=== PATIENT | male | born 2005 | race Caucasian/White ===

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

== ENCOUNTER 2023-02-08 22:08 | Emergency (ER) | payer OTHER, SELFPAY ==
[2023-02-08 22:10] VITALS: BP 144/85; PULSE 86; RESP 20; TEMP 37; O2SAT 98
--- NOTE | 2023-02-08 22:18 | ECG_ITS ---
Measurements Intervals [place] Rate: 76 P: 71 [place]: 193 QRS: 52 QRSD: 112 T: 66 QT: 342 QTc: 387 Interpretive Statements SINUS RHYTHM INCOMPLETE RIGHT BUNDLE BRANCH BLOCK BASELINE ARTIFACT- I, III, AVR, AVL, V1 BORDERLINE ECG COMPARED TO ECG 10/12/2021 15:51:31 NO SIGNIFICANT CHANGES Electronically Signed On 02-10-2023 6:50:34 CDT by Evan Chavez D.O.
--- NOTE | 2023-02-08 22:19 | ED.GENADULT ---
HPI - General Adult General Stated complaint: light headed History of Present Illness HPI narrative: Healthy 17yo man presents with palpitations, intermittent, for the past 2 weeks, along with sweatiness and elevated blood pressure, and recently a sensation of warmth and burning in his genitals and anus that comes on at the same time. Wore a heart monitor recently and won't get the results until Friday. Recently started on Sertraline this past week. Burning sensation did not start until the Sertraline. ROS notable for a lac to his toe, where the stitch broke today after only 2 days. Pt informed it will have to heal by second intent. Related Data Home Medications Medication Instructions Recorded Confirmed No Home Medications 10/12/21 10/12/21 Allergies Allergy/AdvReac Type Severity Reaction Status Date / Time No Known Allergies Allergy Verified 10/12/21 15:26 Review of Systems Review of Systems: All systems reviewed & are unremarkable except as noted in HPI and below Constitutional: Constitutional: Denies fever(s) ENT: Denies vertigo Cardiovascular: Cardiovascular: Denies chest pain and Reports rapid heart rate Respiratory: Respiratory: Denies dyspnea PMFSH Past Medical History Medical History Polycystic kidney disease Exam Const: General: healthy appearing, no acute distress and alert Nutritional Appearance: well nourished Orientation/consciousness: patient oriented x3 Eyes: Conjunctivae: conjunctivae normal Neck: Other: supple Resp: Effort & Inspection: normal respiratory effort, not labored and no retractions Cardio: Rate: regular rate Rhythm: regular rhythm GI: Inspection: non-distended Skin: General skin exam: normal color, no jaundice and no pallor Other: there is a laceration to his toe that must heal by second intent Neuro: General: patient oriented x3 and moves all extremities Gait exam (Neuro): Normal gait present Extrem: General: normal to inspection and no pedal edema Course Course Emergency Course: palpitations, sweatiness, episodic DDx likely medication adverse effect, Sertraline. Far less likely is a pheochromocytoma. Advise pt to stop Sertraline to see if symptoms improve. If symptoms continue, see PMD about ordering urinary metanephrines and/or an MRI to eval for neuroendocrine tumor. Vital Signs Vital signs: Vital Signs Temperature 37.0 C 02/08/23 22:10 Pulse Rate 86 02/08/23 22:10 Respiratory Rate 20 02/08/23 22:10 Blood Pressure 144/85 H 02/08/23 22:10 Pulse Oximetry 98 02/08/23 22:10 Oxygen Delivery Room Air 02/08/23 22:10 Temperature 37.0 C 02/08/23 22:10 Pulse Rate 86 02/08/23 22:10 Respiratory Rate 20 02/08/23 22:10 Blood Pressure 144/85 H 02/08/23 22:10 Pulse Oximetry 98 02/08/23 22:10 Oxygen Delivery Room Air 02/08/23 22:10 Medical Decision Making MDM Narrative Medical decision making narrative: see above Vital Signs Vital Signs: Vital Signs Temperature 37.0 C 02/08/23 22:10 Pulse Rate 86 02/08/23 22:10 Respiratory Rate 20 02/08/23 22:10 Blood Pressure 144/85 H 02/08/23 22:10 Pulse Oximetry 98 02/08/23 22:10 Oxygen Delivery Room Air 02/08/23 22:10 Temperature 37.0 C 02/08/23 22:10 Pulse Rate 86 02/08/23 22:10 Respiratory Rate 20 02/08/23 22:10 Blood Pressure 144/85 H 02/08/23 22:10 Pulse Oximetry 98 02/08/23 22:10 Oxygen Delivery Room Air 02/08/23 22:10 Discharge Plan Discharge Clinical Impression: Intermittent palpitations Patient Disposition: Home, Self-Care Condition: Stable Additional Instructions: Your EKG today is normal, showing no sign of any heart condition. The most likely cause of your palpitations and sweating is a medication side effect. You should stop Sertraline and should also try avoiding any caffeine or alcohol to see if your symptoms then i
[2023-02-08] MEDS: diazePAM (*CRX) 5 MG TABLET PO (23:30)
[2023-02-08 23:55] VITALS: BP 126/76; PULSE 86; RESP 16; TEMP 36.8; O2SAT 96
== END 2023-02-08 23:55 | disposition home or self-care (01) ==
PROVIDERS: Emergency Provider Emergency Medicine; PCP Family Medicine
DX: R00.2 Palpitations (principal)
CPT/HCPCS: 93005; 99284; A9270

== ENCOUNTER 2023-03-09 19:13 | Emergency (ER) | payer OTHER, SELFPAY ==
[2023-03-09 19:17] VITALS: BP 137/101; PULSE 116; RESP 18; TEMP 37.1; O2SAT 100
--- NOTE | 2023-03-09 19:52 | ED.GENADULT ---
HPI - General Adult General Chief complaint: Unspecified Stated complaint: Abdominal Pain Source: patient Mode of arrival: ambulatory Limitations: no limitations History of Present Illness HPI narrative: 18-year-old white male had history of hernia surgery bilaterally with mesh. Then8 days ago he had felt a pop in his right groin when he stretched had some pain and burning since. He saw his primary care who sent him a pinpoint with Dr. Carey it is for surgery he is from [place] becomes a little chilled every other Friday. He has appointment in 3 days says the pain is worse today rates it a 6/10. Has not taken anything for pain. Denies any problems voiding. Complains of his right testicle is painful and into his right guarding groin and feels a knot on the right side. Otherwise he denies any cough shortness of breath fever sore throat runny nose bleeding or bruising swelling. No other lumps and bumps besides the 1 in his right groin. No rash or itching or problems walking talking seeing or hearing. He has felt a little nauseous. But no vomiting. Past surgical history bilateral inguinal hernia surgeries Related Data Home Medications Medication Instructions Recorded Confirmed buspirone 5 mg tablet 5 mg PO DAILY 02/09/23 03/09/23 Allergies Allergy/AdvReac Type Severity Reaction Status Date / Time No Known Allergies Allergy Verified 02/09/23 03:10 [facility] Past Medical History Medical History Polycystic kidney disease Exam Narrative: White male no apparent distress.? Head normocephalic, atraumatic.? Eyes conjunctiva pink sclera nonicteric.? Extraocular movements are intact.? ? ? Neck is supple nontender no lymphadenopathy.? Back is nontender.? Lungs are clear.? Heart is regular with tachycardia and regular rhythm without murmurs gallops or rubs.? Chest wall is nontender.? Abdomen is soft and nontender no hepatosplenomegaly or masses no CVA tenderness no abdominal bruits.? right testicle mild tenderness the epididymis is mildly tender he has a tender lump in his right groin about the size of a pea. I do not feel a definite hernia on the right. Left testicle is normal there is no hernia on the left.Extremities no cyanosis clubbing or edema.? Skin is warm and dry without rashes or lesions.? Neurological patient is alert and oriented x4.? Motor and sensory grossly intact.? Gait is normal. Course Vital Signs Vital signs: Vital Signs Temperature 37.1 C 03/09/23 19:17 Pulse Rate 116 H 03/09/23 19:17 Respiratory Rate 18 03/09/23 19:17 Blood Pressure 137/101 H 03/09/23 19:17 Pulse Oximetry 100 03/09/23 19:17 Oxygen Delivery Room Air 03/09/23 19:17 Temperature 37.1 C 03/09/23 19:17 Pulse Rate 116 H 03/09/23 19:17 Respiratory Rate 18 03/09/23 19:17 Blood Pressure 137/101 H 03/09/23 19:17 Pulse Oximetry 100 03/09/23 19:17 Oxygen Delivery Room Air 03/09/23 19:17 Medical Decision Making MDM Narrative Medical decision making narrative: Patient is placed in room 4 history of physical or performed. Independent Historian: ? Patient only Differential Dx includes but not limited to:? torsion of the testes inguinal hernia Medications were Reviewed:? ?? Independently Interpreted by me:? ?? External Source Review:? ? Social Situation Impacting Patients Care:? ? Shared decision Making:?? was discussed with the patient that he possibly could have a torsion of the testicle and that we are unable to do any kind of ultrasound here and he agreed be transferred to [facility] for ultrasound evaluation there. Discussed with Dr.? Tapia at 8:15 p.m. accepted patient in transfer to his ED department there via private vehicle Vital Signs Vital Signs: Vital Signs Temperature 37.1 C 03/09/23 19:17 Pulse Rate 116 H 03/09/23 19:17 Respiratory Rate 18 03/09/23 19:17 Blood Pressure 137/101 H 05
[2023-03-09 20:02] VITALS: BP 138/79; PULSE 85; RESP 18; O2SAT 99
--- NOTE | 2023-03-09 20:18 | PC.NURSE ---
Call to [facility] for pt to have U/S to r/o torsion or possible mesh issue from inguinal hernia surgery. Dr Burgos spoke to Dr Tapia and pt signed paperwork to go by car and drive himself to their ER. Paperwork signed for transfer and sent c pt.
[2023-03-09 20:27] VITALS: BP 136/75; PULSE 80; RESP 18; TEMP 36.6; O2SAT 99
== END 2023-03-09 20:36 | disposition short-term general hospital (02) ==
PROVIDERS: Emergency Provider Emergency Medicine; PCP Family Medicine
DX: R10.31 Right lower quadrant pain (principal); N50.811 Right testicular pain; R22.2 Localized swelling, mass and lump, trunk
CPT/HCPCS: 99282

== ENCOUNTER 2023-03-09 21:05 | Emergency (ER) | payer OTHER, SELFPAY ==
--- NOTE | ~2023-03-09 | US_ITS ---
EXAMINATION: US scrotum doppler DATE: 03/09/2023 22:33 INDICATION: Right testicular pain. TECHNIQUE: Grayscale and Doppler ultrasound images of the testes were obtained. COMPARISON: None. FINDINGS: The right testis measures 3.9 x 2.0 x 2.6 cm. The left testis measures 3.6 x 1.8 x 2.6 cm. There is normal vascular flow to both testes. The right epididymis is normal with normal vascular nu w. The left epididymis is normal with normal vascular flow. There is no varicocele or hydrocele. IMPRESSION: 1. Normal testes. Reviewed, dictated and finalized at location A. IMPRESSION: 1. Normal testes.
--- NOTE | ~2023-03-09 | CT_ITS ---
EXAMINATION: CT abdomen pelvis w con DATE: 03/10/2023 01:13 INDICATION: Right groin pain. TECHNIQUE: Computed tomography (CT) of the abdomen and pelvis was performed with 100 mL Omnipaque 350 intravenous contrast. Automated exposure control and iterative reconstruction technique were employe d. The dose-length product was 317.57 mGy-cm. COMPARISON: CT abdomen and pelvis 10/12/2021 FINDINGS: The visualized portions of the lung bases are clear without pneumonia or pleural effusion. The heart size is normal. No pericardial effusion. The liver, gallbladder, spleen, pancreas, and adre nal glands are normal. There are cysts in the kidneys measuring up to 3.2 cm on the left. There is a 2 mm in right kidney. There are no dilated loops of bowel. The appendix is normal. There are no patho logically enlarged lymph nodes. There is trace ascites in the pelvis. There is mild lumbar spondylosi s. IMPRESSION: 1. Polycystic kidney disease. 2. Trace ascites. Reviewed, dictated and finalized at location A.
[2023-03-09 21:07] VITALS: BP 135/91; PULSE 79; RESP 18; TEMP 36.8
--- NOTE | 2023-03-09 21:29 | ED.GENADULT ---
HPI - General Adult General Chief complaint: Urogenital-Male Stated complaint: constricted testicles Time Seen by Provider: 03/09/23 21:07 History of Present Illness HPI narrative: 18-year-old male presented ED for evaluation of right testicular pain. Patient states a few months ago he had a hernia repair. He reports approximately 8 days ago he felt a pop and bulge in the right side. Patient was having some testicular pain with this. Patient was initially seen at [facility] and was advised to present to our ED for emergent ultrasound to rule out torsion. Patient also describes some generalized lower abdominal discomfort. Patient denies any associated nausea vomiting or diarrhea. Related Data Home Medications Medication Instructions Recorded Confirmed buspirone 5 mg tablet 5 mg PO DAILY 02/09/23 03/09/23 Allergies Allergy/AdvReac Type Severity Reaction Status Date / Time No Known Allergies Allergy Verified 03/09/23 22:01 Review of Systems Review of Systems: All systems reviewed & are unremarkable except as noted in HPI and below PMFSH Past Medical History Medical History Polycystic kidney disease Exam Narrative: APPEARANCE: Well appearing, no pain, no distress, well-nourished. HEAD: normocephalic, atraumatic. EYES: PERRLA/EOMI, conjunctivae clear. NOSE: Normal no drainage NECK: Supple. No adenopathy, no masses. RESPIRATORY: Airway patent, respirations nonlabored. Clear to auscultation bilaterally, no rales, rhonchi, wheezing. CARDIOVASCULAR: Regular rate and rhythm without murmurs rubs or gallops. ABDOMINAL: Soft, nontender, nondistended, normal bowel sounds. Right inguinal tenderness to palpation. No scrotal tenderness to palpation. MUSCULOSKELETAL: Moves all extremities. Strength/ROM intact, No edema, No calf tenderness. NEURO: Alert. Cranial nerves II through XII intact. Grossly intact SKIN: Warm, dry. Normal Color Course Course Emergency Course: 18-year-old male presented to ED for evaluation of generalized lower abdominal discomfort and right inguinal pain. Ultrasound was ordered to rule out torsion and ultrasound was negative. Due to the patient also having some right groin pain CT scan was ordered to evaluate for incarcerated hernia. CT scan did show evidence of enterocolitis but no hernia. Patient was afebrile with no leukocytosis. Patient's CMP had no significant abnormalities. UA showed no evidence of infection. Patient reports he does have follow-up scheduled with the surgeon on Friday. Patient and family are updated on the results of the work-up and on reasons to return to the emergency room. All question concerns were addressed Vital Signs Vital signs: Vital Signs Temperature 98.2 F 03/09/23 21:07 Pulse Rate 79 03/09/23 21:07 Respiratory Rate 18 03/09/23 21:07 Blood Pressure 135/91 H 03/09/23 21:07 Oxygen Delivery Room Air 03/09/23 21:07 Temperature 98.2 F 03/09/23 21:07 Pulse Rate 68 03/10/23 02:32 Respiratory Rate 19 03/10/23 02:32 Blood Pressure 120/72 03/10/23 02:32 Pulse Oximetry 100 03/10/23 02:32 Oxygen Delivery Room Air 03/09/23 21:07 Medical Decision Making Differential Diagnosis Differential Diagnosis: Testicular torsion, incarcerated hernia, colitis, enteritis or colitis Vital Signs Vital Signs: Vital Signs Temperature 98.2 F 03/09/23 21:07 Pulse Rate 79 03/09/23 21:07 Respiratory Rate 18 03/09/23 21:07 Blood Pressure 135/91 H 03/09/23 21:07 Oxygen Delivery Room Air 03/09/23 21:07 Temperature 98.2 F 03/09/23 21:07 Pulse Rate 68 03/10/23 02:32 Respiratory Rate 19 03/10/23 02:32 Blood Pressure 120/72 03/10/23 02:32 Pulse Oximetry 100 03/10/23 02:32 Oxygen Delivery Room Air 03/09/23 21:07 Lab Data Lab results reviewed: Yes I reviewed the patient's lab results. 03/09/23 21:16 03/09/23 21:16
[2023-03-09 21:40] LABS: Basophils Percent Auto 0.4 % (0.2-1.2); Eosinophils Absolute Auto 0.1 K/mm3 (0-0.3); Eosinophils Percent Auto 1.8 % (0-4.4); Hematocrit 47.7 % (42.0-52.0); Hemoglobin 16.4 g/dL (14.0-18.0); Immature Granulocyte Absolute 0.02 K/mm3 (0.00-0.031); Immature Granulocyte Percent A 0.3 % (0-0.5); Lymphocytes Absolute Auto 2.97 K/mm3 (0.9-3.2); Lymphocytes Percent Auto 40.1 % (18.3-44.2); Mean Corpuscular HGB Conc 34.4 g/dl (32-36); Mean Corpuscular Hemoglobin 29.9 pg (26-34); Mean Platelet Volume 9.9 fl (7.4-10.4); Monocytes Absolute Auto 0.5 K/mm3 (0.1-0.6); Neutrophils Absolute Auto 3.7 K/mm3 (1.3-6.7); Neutrophils Percent Auto 50.4 % (45.5-73.1); Platelet Count Result 240 k/mm3 (150-375); Red Blood Count 5.48 M/mm3 (4.6-6.20); Red Cell Distribution Width 11.9 % (11.5-14.5); White Blood Count 7.4 K/mm3 (4.5-10.0)
[2023-03-09 21:48] LABS: Appearance Urine Clear (Clear); Bilirubin Urine Negative (Negative); Blood Urine Negative (Negative); Color Urine Yellow (Yellow); Glucose Urine UA Negative (Negative); Ketones Urine Negative (Negative); Leukocyte Esterase Ur Negative LEU/UL (Negative); Nitrate Urine Negative (Negative); Protein Urine Negative (Negative); Specific Grav Ur 1.019 (1.001-1.035); pH Urine 6.5 (5.0-9.0)
[2023-03-09 21:49] LABS: Alanine Aminotransferase 16 U/L (6-50); Alkaline Phosphatase 102 U/L (38-126); Anion Gap 9 mmol/L (8-16); Aspartate Amino Transferase 21 U/L (17-59); Bilirubin,Total 0.6 mg/dL (0.2-1.3); Blood Urea Nitrogen 22 mg/dL (9-20); Calcium 9.4 mg/dL (8.4-10.2); Carbon Dioxide 31 mmol/L (22-30); Chloride 98 mmol/L (98-107); Estimated Glomerular Filt Rate > 60; Glucose 87 mg/dL (65-110); Potassium 3.9 mmol/L (3.4-5.0); Sodium 138 mmol/L (137-145)
[2023-03-09 21:58] LABS: Add Urine Microscopic? NO
[2023-03-09 22:43] VITALS: BP 121/89; PULSE 67; RESP 16; O2SAT 99
--- NOTE | 2023-03-09 23:29 | PC.NURSE ---
This RN assumed care of patient.
[2023-03-10] MEDS: SODIUM CHLORIDE 0.9% IV 1,000 ML 999 ML IV CONT (00:04)
[2023-03-10] MEDS: HYDROmorphone HCL INJ (*CRX) 1 MG/ML SYR 0.5 MG IV PUSH (00:05)
[2023-03-10 02:32] VITALS: BP 120/72; PULSE 68; RESP 19; O2SAT 100
== END 2023-03-10 02:32 | disposition home or self-care (01) ==
PROVIDERS: Emergency Provider Emergency Medicine; PCP Family Medicine
DX: R10.31 Right lower quadrant pain (principal); Q61.3 Polycystic kidney, unspecified
CPT/HCPCS: 36415; 74177; 76870; 80053; 81003; 85025; 93976; 96361; 96374; 99284; J1170; J7030; Q9967

== ENCOUNTER 2023-06-04 18:21 | Emergency (ER) | payer OTHER, SELFPAY ==
[2023-06-04 18:30] VITALS: BP 133/93; PULSE 72; RESP 20; TEMP 36.7; O2SAT 100
--- NOTE | 2023-06-04 19:01 | ED.SYNCOPE ---
HPI - Syncope General Chief Complaint: Syncope Stated Complaint: syncope Time Seen by Provider: 06/04/23 19:00 Source: patient Mode of arrival: ambulatory Limitations: no limitations History of Present Illness HPI narrative: 18-year-old male, nia peña with no past medical was on a scaffolding and laying bricks. At 1:30 p.m. he felt dizzy and lightheaded following which he got off the scaffolding. On his way back to his truck patient felt syncopal. He sat in his truck seat subsequently he is unsure whether he lost consciousness. the patient initially had profuse sweating. Subsequently quit sweating. no nausea/ vomiting. No abdominal pain. No chest pain or shortness of breath. He went to [facility] where he waited for 3 hours without being seen. He left [facility] and presented to the ER here. The patient complains of -- mild dizziness. -- Headache MD complaint: loss of consciousness ( Questionable loss of consciousness) Onset (ago): hour(s) ( 5 hours ago.) Duration of episode: 180 -: minutes(s) Prodromal symptoms: headache and lightheaded Witnessed: Yes - by Bystander Injuries sustained associated with event: none Current symptoms: weakness and other ( dizziness) Treatments prior to arrival: none Related Data Home Medications Medication Instructions Recorded Confirmed No Home Medications 06/04/23 06/04/23 Allergies Allergy/AdvReac Type Severity Reaction Status Date / Time No Known Allergies Allergy Verified 06/04/23 18:36 Review of Systems Review of Systems: All systems reviewed & are unremarkable except as noted in HPI and below Constitutional: Constitutional: Reports as per HPI, Reports no additional constitutional complaints and Reports weakness Eyes: Eyes: Reports as per HPI and Reports no additional eye complaints ENT: Reports system reviewed and no additional complaints, except as documented and Reports as per HPI Cardiovascular: Cardiovascular: Reports as per HPI and Reports no additional cardiovascular complaints Respiratory: Respiratory: Reports as per HPI and Reports no additional respiratory complaints Gastrointestinal: Gastrointestinal: Reports as per HPI and Reports no additional gastrointestinal complaints Genitourinary: Genitourinary: Reports no additional male genitourinary complaints Musculoskeletal: Musculoskeletal: Reports no additional musculoskeletal complaints Integumentary/Breasts: Skin/Breast: Reports system reviewed and no additional complaints, except as docu and Reports as per HPI Neurologic: Reports system reviewed and no additional complaints, except as documented, Reports as per HPI and Reports dizziness Endocrine: Endocrine: Reports no additional endocrine complaints and Reports as per HPI Hematologic/Lymphatic: Hematologic/Lymphatic: Reports no additional hematologic/lymphatic complaints and Reports as per HPI Allergic/Immunologic: Allergic/Immunologic: Reports no additional allergic/immunologic complaints and Reports as per HPI [facility] Past Medical History Medical History Polycystic kidney disease Exam Narrative: not orthostatic Const: General: no acute distress HENMT: Head: normal to inspection Ears: external ears normal Face/Nose/Sinus: Normal external nose present Face and sinus: normal facial exam Mouth: Yes Normal oral and palatal mucosa present Throat: posterior oropharynx normal Eyes: Conjunctivae: conjunctivae normal Pupils: Equal, round and reactive pupils present EOM: EOMs intact bilaterally Direct Ophthalmoscopy: no photophobia Neck: Neck: normal visual inspection, no lymphadenopathy and no meningeal signs Chest: Chest palpation & inspection: normal inspection of the chest Resp: Effort & Inspection: normal respiratory effort Auscultation: clear to auscultation bilaterally Cardio: Rate: regular rate Rhythm: regular rhythm Heart sounds: Murmur heart jeffy
[2023-06-04 19:44] LABS: Basophils Absolute Auto 0.03 K/mm3 (0.00-0.10); Basophils Percent Auto 0.4 % (0.0-1.0); Eosinophils Absolute Auto 0.06 K/mm3 (0.02-0.50); Eosinophils Percent Auto 0.8 % (1.0-6.0); Hematocrit 40.8 % (40.0-54.0); Immature Granulocyte Absolute 0.01 K/mm3 (0.00-0.00); Immature Granulocyte Percent A 0.1 % (0.0-0.0); Lymphocytes Absolute Auto 2.96 K/mm3 (1.10-4.50); Lymphocytes Percent Auto 41.7 % (18.0-42.0); Mean Corpuscular HGB Conc 34.3 g/dL (32.0-36.0); Mean Corpuscular Hemoglobin 30.2 pg (27.0-31.0); Mean Corpuscular Volume 88.1 fL (78.0-102.0); Mean Platelet Volume 9.8 fl (8.7-11.0); Monocytes Absolute Auto 0.44 K/mm3 (0.10-0.90); Monocytes Percent Auto 6.2 % (2.0-11.0); Neutrophils Absolute Auto 3.6 K/mm3 (1.7-7.2); Neutrophils Percent Auto 50.8 % (50.0-70.0); Platelet Count Result 211 K/mm3 (150-420); Red Blood Count 4.63 M/mm3 (4.70-6.10); Red Cell Distribution Width 11.8 % (11.6-14.4); White Blood Count 7.1 K/mm3 (4.8-10.8)
[2023-06-04 20:04] LABS: Alanine Aminotransferase 12 U/L (16-63); Albumin Level 4.2 g/dL (3.4-5.0); Alkaline Phosphatase 89 U/L (46-116); Anion Gap 7 mmol/L (8-16); Aspartate Amino Transferase 11 U/L (15-37); Blood Urea Nitrogen 16 mg/dL (7-18); Carbon Dioxide 32 mmol/L (21-32); Chloride 102 mmol/L (98-108); Creatine Kinase 114 U/L (39-308); Estimated CRCL calculation 114 ml/min; Estimated Glomerular Filt Rate > 60; Glucose 93 mg/dL (70-99); Osmolality Calculated 293 mOsm/kg (285-295); Sodium 141 mmol/L (136-145); Total Protein 7.4 g/dL (6.4-8.2)
[2023-06-04 20:06] LABS: Troponin I < 4.0 ng/L (0.00-60.4)
--- NOTE | 2023-06-04 20:19 | PC.NURSE ---
2014-conventional underwriter followed up on fax as it has not been received at this time. conventional underwriter spoke with pari amaya and was advised to contact medical records as er does not fax information. contact pager as provided ( [phone]). page sent out conventional underwriter awaiting call back. pari Amaya advised call back time is approx 1 hour. physician made aware 1899-report from quentin arriaza. pt has signed medical record release form. rn currently waiting for labs to be faxed from [facility].
[2023-06-04 20:30] VITALS: BP 131/81; PULSE 78; RESP 18; O2SAT 95
== END 2023-06-04 20:40 | disposition home or self-care (01) ==
PROVIDERS: Emergency Provider Internal Medicine Critical Care Medicine; PCP Family Medicine
DX: R55 Syncope and collapse (principal); T67.5XXA Heat exhaustion, unspecified, initial encounter
CPT/HCPCS: 36415; 80053; 82550; 84484; 85025; 99284

== ENCOUNTER 2023-07-30 09:48 | Outpatient (CLI) | payer OTHER, SELFPAY ==
--- NOTE | ~2023-07-30 | XR_ITS ---
Thoracic spine: Clinical Indication: Back pain AP and lateral views were performed. No fracture is seen. There is normal alignment of the vertebrae. The intervertebral disc spaces appe ar normal. Paravertebral soft tissues appear normal. Impression: No significant abnormalities noted. Reviewed, dictated and finalized at [facility]. Impression: No significant abnormalities noted.
== END 2023-07-30 09:49 | disposition home or self-care (01) ==
LOC: CHSIMG 09:53
PROVIDERS: PCP Family Medicine; Visit Provider Family Medicine
DX: M54.6 Pain in thoracic spine (principal)
CPT/HCPCS: 72072

== ENCOUNTER 2023-08-04 07:32 | Outpatient (RCR) | payer OTHER, SELFPAY ==
--- NOTE | 2023-08-04 08:33 | OPREHPOC ---
Outpatient Therapy Plan of Care This is a Multidisciplinary Plan of Care that may contain components documented by all disciplines (PT, OT, and ST.) PT Problem 1 PT Problem #1 Knowledge Deficit PT Goal 1 Goal Patient to demonstrate independence with HEP Target Visit 6 PT Problem 2 PT Problem #2 Pain PT Goal 1 Goal 1. Patient to report highest pain at 1/10 2. Patient to report ability to get out of bed with no increase in pain Target Visit 12 PT Problem 3 PT Problem #3 Impaired Range of Motion PT Goal 1 Goal Patient to demonstrate 45 deg of lumbar ROM and 40 deg of lumbar side bend B with no increase in pain to return to shoveling work duties Target Visit 12 PT Problem 4 PT Problem #4 Impaired Strength PT Goal 1 Goal 1. Patient to demonstrate 4+/5 core strength to return to lifting for work duties 2. Patient to demonstrate ability to lift 50# from ground with no increase in pain Target Visit 12
--- NOTE | 2023-08-04 08:33 | PTOPEVAL1 ---
Assessment and note entered by Racheal Ricardo DPT Evaluation Information Assessment Status Evaluation Diagnosis mid back pain Onset 07/02/23 Subjective Information Patient reports he was carrying concrete blocks at work and went to throw the blocks and felt a pop in the muscles along the spine. He reports he returns to the MD in ~1 week. He did have x-rays that were negative. Since injury patient reports that pain has improved. He reports he has difficulty with stiffness with turning side to side. 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 He reports has not worked since injury. Reported Pain Level Pain Score 2: Self Report Assessment PT Clinical Summary Patient is a 18 year old male who presents to PT with mid back pain following injury at work. Patient demonstrates decreased spinal ROM, decreased core strength and decreased B mid trap strength impairing his ability to roll in bed, lift for work and perform shoveling tasks. He would benefit from skilled PT to address impairments and return to PLOF. Plan of Care Interventions Electrical Stimulation,Hot Pack/Cold Pack,Manual Therapy,Mechanical Traction,Neuro Re-education, Patient/Caregiver Educati,Therapeutic Activities, Therapeutic Exercise PT Services Indicated Yes Treatment Frequency and 3x weekly for 12 visits Duration These treatments will address the objective and functional deficits as defined above. The patient will be advanced safely and appropriately in order for the patient to progress towards his/her prior level of function. Additional exercises will be introduced and as well as a comprehensive home exercise program upon discharge, if needed, ?to ensure carryover of functional gains achieved in the clinic. This treatment plan has been reviewed and agreement upon by the patient.
== END 2023-08-07 13:49 | disposition home or self-care (01) ==
LOC: CHSPT 07:32
PROVIDERS: PCP Family Medicine; Visit Provider Family Medicine
DX: M54.6 Pain in thoracic spine (principal)
CPT/HCPCS: 97014; 97110; 97161; G0283

== ENCOUNTER 2023-08-12 04:10 | Emergency (ER) | payer OTHER, SELFPAY ==
--- NOTE | ~2023-08-12 | CT_ITS ---
EXAMINATION: CT abdomen pelvis w con DATE: 08/12/2023 08:47 INDICATION: Right scrotal pain, erythema and swelling. Right inguinal pain, swelling. History of ingu inal hernia. TECHNIQUE: Computed tomography (CT) of the abdomen and pelvis was performed with 100 CC Omnipaque 350 intravenous contrast. Automated exposure control and iterative reconstruction technique were employe d. Exam dose: 282.20 mGy-cm total exam DLP. COMPARISON: 10/12/2021 CT abdomen pelvis 03/10/2023 CT abdomen pelvis 08/12/2023 scrotal ultrasound FINDINGS: The lung bases are clear. Normal heart size. No pericardial or pleural effusion. The liver, gallbladder, bile ducts, pancreas, pancreatic duct and spleen as well as adrenal glands ar e unremarkable. There are numerous bilateral renal cysts, measuring up to 1.9 cm on the right, 3 cm on the left, rela tively stable in appearance since 10/12/2021. No urinary tract calculus or hydroureteronephrosis is evident. The urinary bladder, prostate gland an d seminal vesicles are unremarkable. Normal caliber of the abdominal aorta. No intraperitoneal or retroperitoneal or pelvic mass lesion or adenopathy or ascites is detected. Normal appendix. Diverticulosis of the colon; no CT evidence of diverticulitis. No bowel obstruction, bowel wall thick ening, pneumatosis or intraperitoneal free air is detected. Small fat-containing umbilical hernia. No inguinal hernia is noted. Included skeletal structures are unremarkable. IMPRESSION: Multiple bilateral renal cysts, relatively stable since 10/12/2021 Diverticulosis of the colon Reviewed, dictated and finalized at [facility] Reviewed, dictated and finalized at [facility].
--- NOTE | ~2023-08-12 | US_ITS ---
EXAMINATION: US scrotum doppler DATE: 08/12/2023 05:27 INDICATION: Right testicular pain. TECHNIQUE: Grayscale and Doppler ultrasound images of the testes were obtained. COMPARISON: Ultrasound 03/09/2023 FINDINGS: The right testis measures 4.0 x 1.9 x 2.4 cm. The left testis measures 3.9 x 1.6 x 2.5 cm. There is normal vascular flow to both testes. The right epididymis is normal with normal vascular nu w. The left epididymis is normal with normal vascular flow. There is no varicocele or hydrocele. IMPRESSION: 1. Normal testes. Reviewed, dictated and finalized at [facility]. IMPRESSION: 1. Normal testes.
[2023-08-12 04:16] VITALS: BP 147/86; PULSE 81; RESP 15; TEMP 36.1; O2SAT 100
[2023-08-12 06:37] VITALS: BP 133/73; PULSE 55; RESP 16; O2SAT 96
[2023-08-12 07:22] VITALS: BP 134/85; PULSE 76; RESP 18; O2SAT 100
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
[2023-08-12 08:04] LABS: Estimated CRCL calculation 140 ml/min; Estimated Glomerular Filt Rate > 60
[2023-08-12 08:32] VITALS: BP 127/87; PULSE 63; RESP 18; O2SAT 99
[2023-08-12 10:42] VITALS: BP 133/91; PULSE 81; RESP 18; O2SAT 100
== END 2023-08-12 10:44 | disposition home or self-care (01) ==
PROVIDERS: Emergency Provider Emergency Medicine; PCP Family Medicine
DX: S30.22XA Contusion of scrotum and testes, initial encounter (principal); N50.811 Right testicular pain; W51.XXXA Accidental striking against or bumped into by another person, initial encounter
CPT/HCPCS: 36415; 74177; 76870; 82565; 93976; 99284; Q9967